=== PATIENT | male | born 1930 | race Caucasian/White ===

== ENCOUNTER 2016-04-06 00:02 | Inpatient (IN) | payer MEDICAID ==
--- NOTE | 2016-06-05 11:28 | H&P TEMPLATE ---
HISTORY: This now 86-year-old gentleman was initially admitted to [facility] on after a 5-day inpatient stay for a stage 4 decubitus ulcer on his right buttock. 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 [facility] COURSE: After admission to [facility] we made gradual progress with his wounds, particularly the sacral wound. Over the last several months, however, his progress has stalled out. He has quit eating well and is intermittently lethargic. He has been losing weight. He is not interested in aggressive care for his condition and at times has stated that he is simply waiting to . He is already under treatment for depression, and does not seem particularly distressed when interacting with him. He smiles and generally has a cooperative demeanor. Recently he and his family have decided that they would like him to return to hospice care. I am in agreement with this and feel that his life expectancy is certainly less than 6 months with all of his chronic conditions listed below. PAST MEDICAL HISTORY 1. Bedbound totally for the last several years. 2. Chronic kidney stage 3. 3. Suprapubic catheter. 4. Anemia of chronic disease. 5. Coronary artery disease with previous history of myocardial infarction. 6. Right buttock decubitus ulcer stage 3-4. 7. Bilateral decubitus heel ulcerations stage 2. 8. Dysmetabolic syndrome. 9. Chronic mild pedal edema. 10. Fecal incontinence. 11. Neurogenic bladder with chronic suprapubic catheter and asyptomatic bacteriuria. 12. Nocturnal hypoxia. 13. Malnutrition. 14. Obstructive sleep apnea. 15. 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 16. Vitamin B12 deficiency. 17. Peripheral artery disease. 18. Stasis dermatitis of the shins with previous history of basal cell carcinoma on the shins. 19. History of basal cell carcinoma on the scalp. 20. 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 21. Chronic constipation. 22. Vitamin D deficiency. 23. Peripheral venous insufficiency. 24. GERD. 25. CHF. 26. Neuropathic leg pain. 27. Intertrigo. 28. Glaucoma. 29. Dry skin. 30. Depression. ALLERGIES: Nkda. MEDICATIONS AT THE TIME OF TRANSFER: Include Cytalopram 20 mg daily. Morphine 10 mg q.4h p.r.n. for pain. Trusopt 2% eye drops 1 in both eyes daily. Xalatan 0.005% eye drops 1 drop both eyes daily. Timoptic 0.25% 1 drop in both eyes daily. Acetaminophen extended release 650 mg p.o. t.i.d. regularly. Aspirin 81 mg enteric coated daily. Fentanyl patch 100 mcg q.3 days. Ketoconazole cream 2% daily to the intertriginous areas. Gabapentin 300 mg q.h.s. Furosemide 40 mg p.o. q.a.m. Famotidine 20 mg p.o. b.i.d. SOCIAL HISTORY: This patient lived at home with help from his up until admission at [facility]. She has declined since then as well and is unable to care for him at home, even if he could get there. He has a DNR status. Habits: The patient never smoked and does not use alcohol. FAMILY HISTORY: The patients father had tuberculosis and his mother had heart disease, diabetes and asthma. IMMUNIZATIONS: The patient had a pneumococcal 23 vaccine in 2013 and in 2006. He had the Prevnar shot in 2015. Tetanus status is uncertain. PHYSICAL EXAMINATION VITAL SIGNS: The patients most recent vital signs included a temperature of 97.6, pulse 66, respirations 16, BP 110/70, O2 sat 94% on room air, and a weight of 170 pounds (down from 193 on admission to [facility]). GENERAL: He initially was quite lethargic but with some verbal and tactile stimulation woke up and interacted with me cooperatively. He was disoriented to place, day and date, but recognized me and remembered my name. He denied any pain. He is able to move his arms but not his legs. HEENT: Oral mucosa was dry. The patient did drink a little bit of water from me but refused any of his breakfast. His scalp has multiple actinic keratoses, some of which have possibly converted to his skin cancers. NECK: Without adenopathy. LUNGS: With distant breath sounds but no rales or wheezes or rhonchi. HEART: Regular rate and rhythm with a sinus bradycardia and no murmur. ABDOMEN: Soft, obese, nontender without masses or hepatosplenomegaly. EXTREMITIES: With trace bilateral pedal edema. The status of his bilateral heel decubiti and sacral decubitus are described in recent wound care nurse notes. I did not remove the dressings today. His shins also have dressings covering up his chronic stasis dermatitis. When I last checked that a week or so ago they were doing fairly well. MOST RECENT LABS: Done on 04/23/16 and included a sodium of 147, potassium 3.7, chloride 116, CO2 of 18, creatinine 1.5 and glucose of 111. His white count then was 9.1, hemoglobin 10.4, hematocrit 32.8 and platelets were 250,000. IMPRESSION: An 86-year-old long time paraplegic with extensive past medical history and gradual functional decline. He is now eating very poorly and becoming increasingly malnourished. He does not desire any aggressive care. He and his family have agreed that he would like to go onto hospice and I feel this is appropriate. PLAN: I changed him to hospice care today, updating his medications and discussing the situation with the hospice and [facility] nurses. BERNABE
== END 2016-06-29 01:23 | disposition expired | DRG 683 ==
LOC: PPLC 00:02
PROVIDERS: ADMIT Family Medicine; ATTEND Family Medicine
DX: N18.3 Chronic kidney disease, stage 3 (moderate) (principal); Z51.5 Encounter for palliative care; I25.10 Atherosclerotic heart disease of native coronary artery without angina pectoris; L89.314 Pressure ulcer of right buttock, stage 4; L89.612 Pressure ulcer of right heel, stage 2; L89.621 Pressure ulcer of left heel, stage 1; G82.21 Paraplegia, complete; R82.79 Other abnormal findings on microbiological examination of urine; I50.9 Heart failure, unspecified; D63.1 Anemia in chronic kidney disease; F32.9 Major depressive disorder, single episode, unspecified; E88.81 Metabolic syndrome and other insulin resistance; H40.1130 Primary open-angle glaucoma, bilateral, stage unspecified; R15.9 Full incontinence of feces; E46 Unspecified protein-calorie malnutrition; N31.9 Neuromuscular dysfunction of bladder, unspecified; G47.33 Obstructive sleep apnea (adult) (pediatric); M19.011 Primary osteoarthritis, right shoulder; M19.012 Primary osteoarthritis, left shoulder; E53.8 Deficiency of other specified B group vitamins; I73.9 Peripheral vascular disease, unspecified; I87.2 Venous insufficiency (chronic) (peripheral); E55.9 Vitamin D deficiency, unspecified; K59.00 Constipation, unspecified; R60.0 Localized edema; Z79.899 Other long term (current) drug therapy